=== PATIENT | male | born 1945 | race African-American/Black ===

== ENCOUNTER 2016-09-07 08:21 | Inpatient (IN) ==
[2016-09-07 09:27] LABS: Basophils % 0.4 % (0.0-0.8); Eosinophils % 0.2 % (0.00-10.9); Hemoglobin 12.9 GM/DL (14.0-18.0); Immature Granulocytes % 0.4 %; Immature Granulocytes Absolute 0.03 #; Lymphocytes # 1.7 10*3/uL (1.4-4.0); Lymphocytes % 19.5 % (21.2-54.2); Mean Corpuscular HGB Conc 32.3 GM/DL (32-36); Mean Corpuscular Hemoglobin 22 PG (27-34); Monocytes # 0.8 10*3/uL (0.11-0.8); Monocytes % 9.5 % (1.7-12.7); Neutrophils # 5.9 10*3/uL (1.4-7.4); Platelet Count 138 T/CUMM (130-400); Red Cell Distribution Width 16.1 % (9.3-17.3); White Blood Count 8.4 T/CUMM (4-12)
[2016-09-07 09:47] LABS: Albumin 2.9 G/DL (3.4-5.0); Bilirubin,Total 0.5 MG/DL (0.2-1.0); Calcium 8.6 MG/DL (8.5-10.1); Osmolality,Calculated 309.4 MOS/KG (273-304); Total Protein 7.5 G/DL (6.4-8.3)
--- NOTE | 2016-09-07 09:47 | XRay Report ---
XR chest 2V Date: 09/07/2016 9:18 AM History: Abnormal lab, edema Comparison: None Technique: PA and lateral chest Findings: The heart is borderline in size with uncoiling of the aorta. Diffuse parenchymal findings at the lung bases with small pleural effusions. The lungs are overexpanded. Unremarkable mediastinum with degenerative changes. Impression: COPD with minimal atelectasis/edema/infiltration at the lung bases with small pleural effusions. PROCEDURE INTERPRETED AT [facility] DEPARTMENT OF RADIOLOGY Final Report Signed by: Dr. Leslie Medina
--- NOTE | 2016-09-07 10:07 | Emergency Department Note ---
Cam Childress Meredith, am scribing for, and in the presence of, Cristian Heredia MD 09:17. Giovanna Childress Phillip K, MD, personally performed the services described in this documentation, ascribed by Luana Levy in my presence, and it is both accurate and complete . Arrival - Arrival Chief Complaint: Extremity Problem Stated Complaint: SENT BY DOCTOR ED Nursing Triage Note: PT SENT BY DR MILLS FOR EVALUATION OF ELEVATED PSA AND DECREASED RENAL FUNCTION. FAMILY REPORTS INCREASED EDEMA TO BLE. PT DENIES PAIN TO BLE. PT IS CONFUSED BUT FAMILY REPORTS THIS IS NORMAL MENTAL STATUS Mode of Arrival: Wheelchair Limitations: Altered Mental Status (confused at baseline) Source: Patient, Family, Old Records Reviewed, RN Notes Reviewed Time Seen by Provider: 09/07/16 09:12 - History of Present Illness HPI Narrative: Pt is a 71 y/o black male sent to the ED by Dr. Mills for further evaluation of elevated PSA and decreased renal function. Family reports that pt has had increased edema to bilaterl lower extremities and difficulty keeping food down for the past few days. Pt is confused at baseline. A majority of history was taken from family. He has a history of HTN, and dementia. Onset (ago): day(s) Allergies/Adverse Reactions: Allergies Allergy/AdvReac Type Severity Reaction Status Date / Time No Known Allergies Allergy Verified 09/07/16 08:41 Home Medications: Home Medications Medication Instructions Recorded Confirmed Type Aspirin EC Tab 81 mg PO DAILY 09/07/16 09/07/16 History Metoprolol Tartrate 50 mg PO BID 09/07/16 09/07/16 History amLODIPine [Norvasc] 10 mg PO DAILY 09/07/16 09/07/16 History Review of System - Review of System ROS unobtainable: due to mental status (confused at baseline) 12 point system: reviewed and no additional remarkable complaints except as stated - Review of System Cardiovascular: Present: as per HPI, edema Gastrointestinal: Present: as per HPI, other (difficulty keeping food down) Genitourinary male: Present: as per HPI, other (elevated PSA and decreased renal function) Medical,Surgical,& Family Hx - Medical History Cardio: History of: Hypertension Neurology: History of: Dementia - Surgical History Neurologic Surgeries: Patient denies: Neurologic Surgery - Family History Family History: Denies;: Additional Family History - Social History Smoking Status: Never smoker Frequency of Alcohol Use: None Type of Drug Use: None Exam Vital Signs: Vital Signs Temperature 97.7 F 09/07/16 08:50 Pulse Rate 77 09/07/16 08:50 Respiratory Rate 20 09/07/16 08:50 Blood Pressure 196/101 09/07/16 08:50 O2 Sat by Pulse Oximetry 97 09/07/16 08:50 - General General appearance: alert, in no apparent distress - Head Head exam: Present: atraumatic, normocephalic - Eye Eye exam: Present: normal appearance, PERRL, EOMI - ENT ENT exam: Present: mucous membranes moist, normal external ear exam - Neck Neck exam: Present: full ROM, trachea midline. Absent: tenderness, meningismus , lymphadenopathy, thyromegaly - Chest Chest inspection: Present: symmetric chest wall rise. Absent: tenderness, rash - Respiratory Respiratory exam: Present: normal lung sounds bilaterally. Absent: respiratory distress - Cardiovascular Cardiovascular exam: Present: regular rate, normal rhythm, normal heart sounds. Absent: murmur, rubs, gallop - Abdominal Exam Abdominal exam: Present: soft, normal bowel sounds. Absent: distention, tenderness - Extremities Exam Extremities exam: Present: full ROM, normal capillary refill, pedal edema (3+ to the left leg with increased warmth ), calf tenderness (left) - Back Exam Back exam: Present: full ROM. Absent: tenderness - Neurological Exam Neurological exam: Present: alert, CN II-XII intact. Absent: oriented X3 ( comfused at baseline) - Psychiatric Psychiatric exam: Present: normal affect, normal mood - Skin Skin exam: Present: warm, dry, intact Course Course Narrative: Patient discussed with the hospitalist. Results - Labs CBC & BMP: 09/07/16 08:58 09/07/16 08:58 Lab Results: I have reviewed the patients labs Labs: Laboratory Tests 09/07/16 08:58 WBC 8.4 RBC 5.80 H Hgb 12.9 L Hct 40.0 L MCV 69.0 L MCH 22 L Plt Count 138 Lymph % (Auto) 19.5 L Laboratory Tests 09/07/16 08:58 Sodium 133 L Potassium 6.0 H* Chloride 99 Carbon Dioxide 17 L Anion Gap 23.0 H BUN 132 H Creatinine 20.10 H Glucose 116 H Calculated Osmolality 309.4 H Albumin 2.9 L Globulin 4.6 H Albumin/Globulin Ratio 0.6 L - Diagnostic Findings Procedure: Chest x-ray: report reviewed by me, pending (COPD with minimal atelectasis/edema/infiltration at the lung bases with small pleural effusions. ) , Ultrasound: image reviewed by me (DVT left leg) Disposition Clinical Impression: Deep vein thrombosis of lower extremity, Acute renal failure, Hyperkalemia, diminished renal excretion Case discussed with: patient, patient's family, patient's physician Disposition: Still a Patient Condition: Guarded Additional Instructions: Admit to the hospitalist and consult nephrology.
--- NOTE | 2016-09-07 10:11 | Ultrasound Report ---
Exam: Left lower extremity venous Doppler/duplex ultrasound Comparison: None Clinical history: Left leg edema Technique: Duplex scan of the left lower extremity veins using th B- mode/grayscale imaging and Dopplers spectral analysis and color flow. Findings: There is abnormal compression and augmentation of the left common femoral, superficial femoral and popliteal veins. Occluding thrombus noted throughout the veins in the left leg including the greater saphenous vein. Normal flow in the right common femoral vein. Color flow study and spectral analysis performed. Impression: Evidence of extensive deep venous thrombosis within the left lower extremity. Findings were discussed by the technologist with Sarah Rosario RN at 10:00 AM on 09/07/2016. Critical test results Ultrasound images were captured and stored. PROCEDURE INTERPRETED AT [facility] DEPARTMENT OF RADIOLOGY Final Report Signed by: Dr. Leslie Medina
[2016-09-07 10:40] LABS: Hypochromasia 1+
[2016-09-07 10:41] LABS: Microcytosis 1+
[2016-09-07 10:42] LABS: Platelet Estimate Adequate
--- NOTE | 2016-09-07 11:08 | Hospitalist History & Physical ---
Assessment and Plan (1) Deep vein thrombosis of lower extremity Status: Acute Assessment and plan: Due to his impaired renal function, we will start anticoagulation per pharmacy recommendation. CBR and labs in AM. Current Visit: Yes (2) Acute renal failure Status: Acute Assessment and plan: Will re-check labs and obtain abdominal/renal ultrasound to r/o prostate obstruction. Will consider consult urology if findings are positive. Current Visit: Yes (3) Hyperkalemia, diminished renal excretion Status: Acute Assessment and plan: We will re-check labs and consult nephrology. Current Visit: Yes History of Present Illness Chief complaint: Left leg pain;inability to walk History of present illness: This is 71 year-old elderly -[place] male with an impressive medical history which includes hypertension that presented to the ED this morning with a chief complaint of left lower leg pain. Apparently, the pain started about two days ago. He described it as "dull" in quality; however it became severe on last night. He reports that the pain became "unbearable" this morning. After much encouragement from his and son whom are present at bedside, he decided to seek medical attention. His reports medical non-compliance; she states that "he hasn't seen a doctor in years" and "doesn't take any of his blood pressure medications". He was seen and evaluated in the ED. A bilateral venous doppler was performed which revealed an extensive deep vein thrombosis to the left lower extremity.Labs were obtained ; which revealed gross elevations in renal functions with a of BUN-132 and creatinine of 20. He was also hyperkalemic at 6.0. He does not appear to be uremic or experiencing altered mental status; his only complaint is left leg pain. He will be admitted to our services for ARF and Left leg DVT. In addition, the patient was seen in clinic by on yesterday in clinic. At that time labs were obtained, revealed an elevated creatinine 16; for which Dr. Alegria notified. We will consult Dr. Alegria to participate in the management of this patient. Home Medications Medication Instructions Recorded Confirmed Type Aspirin EC Tab 81 mg PO DAILY 09/07/16 09/07/16 History Metoprolol Tartrate 50 mg PO BID 09/07/16 09/07/16 History amLODIPine [Norvasc] 10 mg PO DAILY 09/07/16 09/07/16 History Allergies Allergy/AdvReac Type Severity Reaction Status Date / Time No Known Allergies Allergy Verified 09/07/16 08:41 Medical,Surgical,& Family Hx - Medical History Cardio: History of: Hypertension Neurology: History of: Dementia - Surgical History Neurologic Surgeries: Patient denies: Neurologic Surgery - Family History Family History: Denies;: Additional Family History - Social History Smoking Status: Never smoker Frequency of Alcohol Use: None Type of Drug Use: None - Constitutional Constitutional: Absent: fever(s), frequent falls, headache(s), increased appetite, weight gain, weight loss - EENT Eyes: Absent: blurry vision, diplopia, loss of vision Ears: Absent: decreased hearing, ear discharge, ear pain Nose, mouth and throat: Absent: dysphagia, epistaxis, headache(s), sore throat, vertigo - Cardiovascular Cardiovascular: Present: other (left lower leg edema and pain). Absent: chest pain with activity, dyspnea, radiating jaw, neck or arm pain, orthopnea - Respiratory Respiratory: Absent: cough, dyspnea, dyspnea on exertion, pain on inspiration - Gastrointestinal Gastrointestinal: Absent: abdominal pain, cramping, diarrhea, nausea, vomiting, jaundice - Genitourinary Genitourinary: Absent: difficulty urinating, flank pain, hematuria, nocturia, scrotal swelling, testicular mass - Musculoskeletal Musculoskeletal: Present: other (left lower leg pain) - Psychiatric Psychiatric: Absent: anxiety, auditory hallucinations, confusion, depression, difficulty concentrating, memory loss, suicidal ideation - Endocrine Endocrine: Absent: fatigue, polydipsia, polyphagia - Hematologic/Lymphatic Hematologic/Lymphatic: Absent: easy bleeding, easy bruising Exam - Constitutional Vitals: Period Temp Pulse Resp BP Sys/Ken Pulse Ox Last 24 Hr 70 20 192/102 97 General appearance: normal weight, no acute distress - Head Head exam: Present: normal inspection, normocephalic, atraumatic - Eye Eye exam: Present: EOMI. Absent: periorbital swelling, scleral icterus Pupils: Present: DANI, normal accommodation - ENT ENT exam: Present: normal exam - Neck Neck exam: Present: normal inspection. Absent: lymphadenopathy, meningismus, tenderness, thyromegaly - Respiratory Respiratory exam: Present: clear to auscultation bilaterally. Absent: rales, rhonchi, stridor, wheezes - Cardiovascular Cardiovascular exam: Present: regular rate and rhythm. Absent: carotid bruit, diastolic murmur, gallop, irregular rhythm, JVD, rubs, systolic murmur - GI/Abdominal GI/Abdominal exam: Present: normal bowel sounds, soft. Absent: firm, guarding, mass - Extremities Exam Extremities exam: Present: calf tenderness (left leg), edema - Back Exam Back exam: Present: normal inspection - Neurological Exam Neurological exam: Present: alert, oriented X3, normal gait, abnormal gait ( inability to bear weight on left leg), CN II-XII intact - Psychiatric Psychiatric exam: Present: normal affect - Skin Skin exam: Present: normal color, warm, dry Results - Labs CBC & BMP: 09/07/16 08:58 09/07/16 08:58 Lab Results: I have reviewed the past 24 hour labs
[2016-09-07] MEDS ORDERED: DEXTROSE 50% 25 GM/50 ML VIAL IV PRN (11:17)
[2016-09-07] MEDS ORDERED: GLUCAGON 1 MG VIAL IM PRN (11:17)
[2016-09-07] MEDS ORDERED: ACETAMINOPHEN 325 MG TABLET PO PRN (11:17)
--- NOTE | 2016-09-07 11:50 | Ultrasound Report ---
Exam: US renal Bilateral Date: 09/07/2016 10:49 AM Comparison: None Indication: Renal failure Technique:[Multiple real-time scans were obtained of the kidneys and urinary bladder. Color-flow scans obtained. Ultrasound images were captured and stored.] Findings: Right kidney measures 114 x 55 x 52 mm. Left kidney measures 123x 62 x 50 mm. Color flow documented in the kidneys. Minimal bilateral hydronephrosis with findings more pronounced on the right. Griffin catheter in the urinary bladder with limited evaluation of the bladder and pelvis. Urine noted in the urinary bladder. Impression: The right kidney is minimally smaller in size in the left with minimal bilateral hydronephrosis with findings more pronounced on the right. No obvious masses are identified. Griffin catheter in the urinary bladder with very limited evaluation of the bladder. PROCEDURE INTERPRETED AT [facility] DEPARTMENT OF RADIOLOGY Final Report Signed by: Dr. Leslie Medina
[2016-09-07] MEDS: SODIUM CHLORIDE 0.9% 1,000 ML IV SCH ×2 (13:32→22:01)
[2016-09-07] MEDS: INSULIN LISPRO 100 UNIT/ML SUBCUT SCH ×3 (13:41→21:56)
[2016-09-07 13:48] LABS: Osmolality,Calculated 307.4 MOS/KG (273-304)
[2016-09-07 13:50] LABS: Potassium 6.2 MMOL/L (3.5-5.1)
[2016-09-07 14:05] LABS: Apearance,Urine CLOUDY (Clear); Bilirubin,Urine Negative (Negative); Blood, Urine Moderate mg/dL (Negative); Glucose,Urine (UA) Negative (Negative); Ketones,Urine Negative (Negative); Nitrite,Urine Negative (Negative); Protein,Urine 100 MG/DL; RBC,Urine 33 /HPF (0-4); Urine Color Yellow (Yellow); Urine Specific Gravity 1.008 (1.001-1.035); Urine Urobilinogen < 2.0 EU/DL (0.2-1.0); WBC,Urine 508 /HPF (0-6)
--- NOTE | 2016-09-07 15:25 | Nephrology Consult Note ---
History of Present Illness Chief complaint: ARF History of present illness: Mr. Batista is a 71 year old male seen by his local physician in [place] yesterday for evaluation of fatigue. Lab results returned after the when home. His creatinine was noted to be 16. He was advised to come to the ER. On presentation, he reports some left lower extremity swelling and pain. He is mildly confused. His family states this is his baseline. He has had some nausea and vomiting. He denies shortness of breath. Home Medications Medication Instructions Recorded Confirmed Type Aspirin EC Tab 81 mg PO DAILY 09/07/16 09/07/16 History Metoprolol Tartrate 50 mg PO BID 09/07/16 09/07/16 History amLODIPine [Norvasc] 10 mg PO DAILY 09/07/16 09/07/16 History Allergies Allergy/AdvReac Type Severity Reaction Status Date / Time No Known Allergies Allergy Verified 09/07/16 08:41 Medical,Surgical,& Family Hx - Medical History Cardio: History of: Hypertension Neurology: History of: Dementia Endocrine: History of: Diabetes Mellitus (NIDDM) Renal: History of: Renal Failure - Surgical History Neurologic Surgeries: Patient denies: Neurologic Surgery - Family History Family History: Reports;: Family Cancer (father (prostate)), Family Diabetes ( mother, father), Family Heart Disease (mother, father), Family Hypertension ( MOTHER, FATHER) Denies;: Family Anesthesia Reaction, Family Hematology, Family Psychiatric Problems, Family Stroke, Additional Family History - Social History Smoking Status: Never smoker Frequency of Alcohol Use: None Type of Drug Use: None Review of Systems 12 point system: reviewed and no additional remarkable complaints except as stated Exam - Vital Signs Vital signs: Period Temp Pulse Resp BP Sys/Ken Pulse Ox Last 24 Hr 98.4 F 70-71 20-183 183-192/88-102 96-97 Exam: Gen.: Alert. Mildly confused ENT: Pupils equal round reactive to light. EOMs intact. Mucous membranes moist. Neck: Supple. No JVD or bruit. Cardiovascular: Regular rate and rhythm. No murmur rub or gallop Lungs: Clear Abdomen: Soft. Nontender. Positive bowel sounds. No organomegaly Extremities: No edema right. 1+ edema on the left Results - Labs CBC & BMP: 09/07/16 08:58 09/07/16 13:19 Assessment and Plan (1) Acute renal failure Status: Acute Assessment and plan: 71-year-old man admitted with: * ARF. Ultrasound shows bilateral hydronephrosis. He has greater than 1 L urine output soon after Griffin catheter placed. Renal function should improve * DVT, left leg. Eliquis has been started * Hypertension * Diabetes mellitus * Dementia Current Visit: Yes (2) Hypertension Status: Acute Current Visit: Yes (3) Dementia Status: Acute Current Visit: Yes (4) Deep vein thrombosis of lower extremity Status: Acute Current Visit: Yes (5) Hyperkalemia, diminished renal excretion Status: Acute Current Visit: Yes (6) Diabetes mellitus Status: Acute Current Visit: Yes
[2016-09-07] MEDS ORDERED: SODIUM POLYSTYRENE SULFATE 15 GM/60 ML BOTTLE PO ONE (17:00)
[2016-09-07] MEDS: METOPROLOL TARTRATE 50 MG TABLET PO SCH (21:55)
[2016-09-07] MEDS: APIXABAN 5 MG TABLET PO SCH (21:56)
[2016-09-08 06:03] LABS: Basophils % 0.1 % (0.0-0.8); Eosinophils % 0.1 % (0.00-10.9); Hematocrit 35.7 VOL% (42.0-52.0); Hemoglobin 11.6 GM/DL (14.0-18.0); Immature Granulocytes % 0.4 %; Immature Granulocytes Absolute 0.03 #; Lymphocytes # 1.4 10*3/uL (1.4-4.0); Lymphocytes % 19.2 % (21.2-54.2); Mean Corpuscular HGB Conc 32.5 GM/DL (32-36); Mean Corpuscular Hemoglobin 22 PG (27-34); Mean Corpuscular Volume 67.2 FL (87-102); Monocytes # 0.7 10*3/uL (0.11-0.8); Monocytes % 10.1 % (1.7-12.7); Neutrophils % 70.1 % (38.7-73.9); Platelet Count 123 T/CUMM (130-400); Red Blood Count 5.31 MC/CUMM (3.8-5.5); Red Cell Distribution Width 15.4 % (9.3-17.3); White Blood Count 7.2 T/CUMM (4-12)
[2016-09-08 06:30] LABS: Hypochromasia 1+; Ovalocytes Slight; Platelet Estimate Normal
[2016-09-08 06:31] LABS: Microcytosis 1+
[2016-09-08 06:33] LABS: Calcium 8.6 MG/DL (8.5-10.1); Osmolality,Calculated 294.3 MOS/KG (273-304); Potassium 4.5 MMOL/L (3.5-5.1)
[2016-09-08] MEDS: SODIUM CHLORIDE 0.9% 1,000 ML IV SCH ×3 (06:38→22:41)
[2016-09-08] MEDS: INSULIN LISPRO 100 UNIT/ML SUBCUT SCH ×4 (08:34→23:12)
--- NOTE | 2016-09-08 09:20 | Hospitalist Progress Note ---
Assessment and Plan (1) ARASELI (acute kidney injury) Status: Acute Assessment and plan: 1)ARASELI due to urinary obstruction, likely prostate- creatinine falling quickly after ambriz placed. good UOP. Continue ambriz, consult urology. 2)hyperkalemia- down after kayexalate and recovery of renal function. 3)DVT- on eliquis at 10mg bid for 10days, day 2, then 5mg bid. 4)dementia- exacerbated by uremia. His metabolic ecephalopathy should improve as renal function returns 5)DM- blood sugar looks ok- use SSI PRN. Current Visit: Yes (2) Deep vein thrombosis of lower extremity Status: Acute Current Visit: Yes (3) Hyperkalemia, diminished renal excretion Status: Acute Current Visit: Yes (4) Hypertension Status: Acute Current Visit: Yes (5) Dementia Status: Acute Current Visit: Yes (6) Diabetes mellitus Status: Acute Current Visit: Yes Hospitalist: Subjective Interval history: Mr Batista is doing well this morning, eating breakfast and watching TV. He denies pain and says his L leg is not bothering him. He has not had any problem with his ambriz. Exam - Constitutional Vitals: Period Temp Pulse Resp BP Sys/Kne Pulse Ox Last 24 Hr 97.8 F-99.9 F 70-87 18-183 124-192/57-102 95-99 General appearance: normal weight, no acute distress - Head Head exam: Present: normocephalic, atraumatic - Eye Eye exam: Present: EOMI. Absent: scleral icterus - Respiratory Respiratory exam: Present: clear to auscultation bilaterally - Cardiovascular Cardiovascular exam: Present: regular rate and rhythm - GI/Abdominal GI/Abdominal exam: Present: normal bowel sounds, soft. Absent: tenderness ( cannot palpate bladder today) - Extremities Exam Extremities exam: Present: edema (left calf still with some edema, but less than on admit) - Neurological Exam Neurological exam: Present: alert, oriented X3 (remains a bit confused, but more certain of himself than yesteday.) - Skin Skin exam: Present: warm, dry Results - Labs CBC & BMP: 09/08/16 05:24 09/08/16 05:24 Lab Results: I have reviewed the past 24 hour labs Quality Measures - VTE Contraindication to Mechanical VTE Prophylaxis: Current Diagnosis of DVT
[2016-09-08] MEDS: METOPROLOL TARTRATE 50 MG TABLET PO SCH ×2 (09:35→20:25)
[2016-09-08] MEDS: amLODIPine 10 MG TABLET PO SCH (09:35)
[2016-09-08] MEDS: PANTOPRAZOLE 40 MG TABLET PO SCH (09:35)
[2016-09-08] MEDS: APIXABAN 5 MG TABLET PO SCH ×2 (09:35→20:25)
--- NOTE | 2016-09-08 13:36 | Urology Consultation ---
History of Present Illness - Data of Consult Consult date: 09/08/16 - Consult Narrative History of present illness: Mr. Batista is a 71 year old male This 71-year-old black male was admitted to hospital with DVTs and was noted to have bladder distention with over thousand cc in his bladder. He was complaining of some urinary symptoms but he was voiding and did not think he was in urinary retention. He had an element marked elevated creatinine which is rapidly decreased with the Griffin catheter. He has no past history of any serious urological problems and he is a diabetic. I think that he probably has a neurogenic bladder with a markedly distended bladder and no urge to void. I am going to recommend we do a baseline PSA start him on medication for BPH and then give him a trial of voiding next week. He will probably need intermittent catheterization post discharge CC: Sherrell Perez MD - Home Medications and Allergies Home Medications: Home Medications Medication Instructions Recorded Confirmed Type Aspirin EC Tab 81 mg PO DAILY 09/07/16 09/07/16 History Metoprolol Tartrate 50 mg PO BID 09/07/16 09/07/16 History amLODIPine [Norvasc] 10 mg PO DAILY 09/07/16 09/07/16 History Allergies/Adverse Reactions: Allergies Allergy/AdvReac Type Severity Reaction Status Date / Time No Known Allergies Allergy Verified 09/07/16 08:41 Exam - Constitutional Vitals: Period Temp Pulse Resp BP Sys/Ken Pulse Ox Last 24 Hr 97.8 F-99.9 F 71-87 18-20 124-157/57-87 95-100 Results - Labs CBC & BMP: 09/08/16 05:24 09/08/16 05:24
[2016-09-08] MEDS: FINASTERIDE 5 MG TABLET PO SCH (14:17)
[2016-09-08] MEDS: TAMSULOSIN 0.4 MG CAPSULE PO SCH ×2 (14:17→20:25)
--- NOTE | 2016-09-08 15:37 | Nephrology Progress Note ---
Nephrology - PN: Subj Interval history: He is awake and alert. He denies shortness of breath or nausea Exam (PN)-Nephrology - Vital Signs Vital signs: Period Temp Pulse Resp BP Sys/Ken Pulse Ox Last 24 Hr 97.8 F-99.9 F 71-87 18-20 124-157/57-87 95-100 Exam: ENT: Normal Cardiovascular: Regular rate and rhythm. No murmur rub or gallop Lungs: Clear Extremities: No edema right. 1+ left leg edema - Lab 09/08/16 05:24 09/08/16 05:24 Most recent lab results Calcium 8.6 MG/DL (8.5-10.1) 09/08/16 05:24 Assessment and Plan (1) Acute renal failure Status: Deleted Assessment and plan: 71-year-old man admitted with: * ARF. This is DVT bladder outlet obstruction. Renal function improving quickly. Urology consulted * DVT, left leg. Eliquis has been started * Hypertension * Diabetes mellitus * Dementia Current Visit: Yes (2) Hypertension Status: Acute Current Visit: Yes (3) Dementia Status: Acute Current Visit: Yes (4) Deep vein thrombosis of lower extremity Status: Acute Current Visit: Yes (5) Hyperkalemia, diminished renal excretion Status: Acute Current Visit: Yes (6) Diabetes mellitus Status: Acute Current Visit: Yes
[2016-09-09 05:43] LABS: Calcium 8.6 MG/DL (8.5-10.1); Osmolality,Calculated 279.4 MOS/KG (273-304); Potassium 4.2 MMOL/L (3.5-5.1)
[2016-09-09] MEDS: SODIUM CHLORIDE 0.9% 1,000 ML IV SCH ×2 (06:06→23:55)
[2016-09-09] MEDS: PANTOPRAZOLE 40 MG TABLET PO SCH (08:43)
[2016-09-09] MEDS: APIXABAN 5 MG TABLET PO SCH ×2 (08:43→21:28)
[2016-09-09] MEDS: TAMSULOSIN 0.4 MG CAPSULE PO SCH ×2 (08:43→21:28)
[2016-09-09] MEDS: INSULIN LISPRO 100 UNIT/ML SUBCUT SCH ×4 (08:43→21:31)
[2016-09-09] MEDS: FINASTERIDE 5 MG TABLET PO SCH (08:43)
[2016-09-09] MEDS: METOPROLOL TARTRATE 50 MG TABLET PO SCH ×2 (08:43→21:28)
[2016-09-09] MEDS: amLODIPine 10 MG TABLET PO SCH (08:43)
--- NOTE | 2016-09-09 08:54 | Hospitalist Progress Note ---
Assessment and Plan - Time spent with patient Time spent with patient: Less than 30 minutes (1) ARASELI (acute kidney injury) Status: Acute Assessment and plan: Patient's acute kidney injury has essentially resolved from an initial creatinine of approximately 20 down to 1. Is postobstructive in nature and relieved with Griffin catheter placement. Urology has been consulted and is currently following. Current Visit: Yes (2) Deep vein thrombosis of lower extremity Status: Acute Assessment and plan: Symptomatically improving. Continue anticoagulation. Current Visit: Yes (3) Hypertension Status: Chronic Assessment and plan: Blood pressures controlled. Will continue his current regimen. Current Visit: Yes Qualifiers: Hypertension type: essential hypertension Qualified Code(s): I10 - Essential (primary) hypertension (4) Dementia Status: Chronic Current Visit: Yes (5) Diabetes mellitus Status: Chronic Assessment and plan: Continue to follow blood sugars with Accu-Cheks and sliding scale insulin. Current Visit: Yes Qualifiers: Diabetes mellitus type: type 2 Hospitalist: Subjective Interval history: Mr. Batista is doing well without complaints of chest pain, shortness breath, abdominal pain, nausea, vomiting, diarrhea, constipation. He is tolerating his diet without difficulty. Exam - Constitutional Vitals: Period Temp Pulse Resp BP Sys/Ken Pulse Ox Last 24 Hr 97.8 F-99.6 F 70-89 18-18 112-143/67-72 98-100 General appearance: no acute distress - Head Head exam: Present: normocephalic, atraumatic - Eye Eye exam: Present: EOMI Pupils: Present: DANI - ENT ENT exam: Present: normal oropharynx - Neck Neck exam: Present: normal inspection - Respiratory Respiratory exam: Present: clear to auscultation bilaterally - Cardiovascular Cardiovascular exam: Present: regular rate and rhythm - GI/Abdominal GI/Abdominal exam: Present: normal bowel sounds, soft. Absent: distended, tenderness, rebound - Extremities Exam Extremities exam: Present: calf tenderness (Tender swollen left lower extremity) - Back Exam Back exam: Present: normal inspection - Neurological Exam Neurological exam: Present: alert, oriented X3, CN II-XII intact. Absent: motor sensory deficit - Psychiatric Psychiatric exam: Present: normal affect, normal mood. Absent: agitated, anxious - Skin Skin exam: Present: warm, dry. Absent: rash Results - Labs CBC & BMP: 09/08/16 05:24 09/09/16 04:18 Lab Results: I have reviewed the past 24 hour labs Quality Measures - VTE Contraindication to Mechanical VTE Prophylaxis: Current Diagnosis of DVT
[2016-09-09] MEDS: cefTRIAXone 1,000 MG in SODIUM CHLORIDE 0.9% 100 ML IV SCH (17:10)
--- NOTE | 2016-09-09 19:41 | Nephrology Progress Note ---
Nephrology - PN: Subj Interval history: The patient is resting comfortably. Family at bedside. Renal function has continued to recover with serum creatinine of 1.1. No fevers or chills. Exam (PN)-Nephrology - Vital Signs Vital signs: Period Temp Pulse Resp BP Sys/Ken Pulse Ox Last 24 Hr 97.8 F-100.2 F 75-89 18-18 123-143/65-72 97-100 - General Appearance General appearance: well-developed, well-nourished EENT: ATNC Neck: supple Respiratory: clear Cardiology: no edema, regular rate, regular rhythm Gastrointestinal: normoactive bowel sounds, no tenderness Neurologic: alert and oriented x3, CN 3-12 intact Musculoskeletal: no clubbing Psychiatric: mood/affect appropriate - Lab 09/08/16 05:24 09/09/16 04:18 Most recent lab results Calcium 8.6 MG/DL (8.5-10.1) 09/09/16 04:18 Assessment and Plan (1) Deep vein thrombosis of lower extremity Status: Acute Current Visit: Yes (2) Hypertension Status: Chronic Current Visit: Yes Qualifiers: Hypertension type: essential hypertension Qualified Code(s): I10 - Essential (primary) hypertension (3) Diabetes mellitus Status: Chronic Current Visit: Yes Qualifiers: Diabetes mellitus type: type 2 (4) ARASELI (acute kidney injury) Status: Resolved Assessment and plan: This issue is continued to resolve. Serum creatinine is 1.1. Current Visit: Yes
[2016-09-10 05:54] LABS: Calcium 8.6 MG/DL (8.5-10.1); Osmolality,Calculated 272.7 MOS/KG (273-304); Potassium 4.1 MMOL/L (3.5-5.1)
--- NOTE | 2016-09-10 07:47 | Hospitalist Progress Note ---
Assessment and Plan - Time spent with patient Time spent with patient: Less than 30 minutes (1) ARASELI (acute kidney injury) Status: Resolved Assessment and plan: Patient's acute kidney injury has essentially resolved from an initial creatinine of approximately 20 down to 1. Is postobstructive in nature and relieved with Griffin catheter placement. Urology has been consulted and is currently following. 09/10/16: Renal function is essentially back to normal. Griffin catheter continues to be in place. Awaiting Dr. Elizondo's recommendations prior to discharge. Current Visit: Yes (2) Deep vein thrombosis of lower extremity Status: Acute Assessment and plan: Symptomatically improving. Continue anticoagulation. Current Visit: Yes (3) Hypertension Status: Chronic Assessment and plan: Blood pressures controlled. Will continue his current regimen. Current Visit: Yes Qualifiers: Hypertension type: essential hypertension Qualified Code(s): I10 - Essential (primary) hypertension (4) Dementia Status: Chronic Current Visit: Yes (5) Diabetes mellitus Status: Chronic Assessment and plan: Continue to follow blood sugars with Accu-Cheks and sliding scale insulin. Current Visit: Yes Qualifiers: Diabetes mellitus type: type 2 Hospitalist: Subjective Interval history: Patient has no new complaints today. No chest discomfort, shortness of breath, abdominal pain. Left leg swelling appears to be improving. He continues to have a Griffin catheter in place. Exam - Constitutional Vitals: Period Temp Pulse Resp BP Sys/Ken Pulse Ox Last 24 Hr 98.9 F-100.3 F 76-102 18-20 123-154/65-79 97-100 General appearance: no acute distress - Head Head exam: Present: normocephalic, atraumatic - Eye Eye exam: Present: EOMI Pupils: Present: DANI - ENT ENT exam: Present: normal exam - Neck Neck exam: Present: normal inspection - Respiratory Respiratory exam: Present: clear to auscultation bilaterally - Cardiovascular Cardiovascular exam: Present: regular rate and rhythm, tachycardia - GI/Abdominal GI/Abdominal exam: Present: normal bowel sounds, soft. Absent: mass, tenderness , rebound - Extremities Exam Extremities exam: Present: edema (1+ edema left lower extremity). Absent: calf tenderness - Back Exam Back exam: Present: normal inspection - Neurological Exam Neurological exam: Present: alert, oriented X3, CN II-XII intact. Absent: motor sensory deficit - Psychiatric Psychiatric exam: Present: normal affect, normal mood. Absent: agitated, anxious - Skin Skin exam: Present: warm, dry. Absent: rash Results - Labs CBC & BMP: 09/08/16 05:24 09/10/16 04:24 Lab Results: I have reviewed the past 24 hour labs Quality Measures - VTE Contraindication to Mechanical VTE Prophylaxis: Current Diagnosis of DVT
[2016-09-10] MEDS: SODIUM CHLORIDE 0.9% 1,000 ML IV SCH ×3 (08:30→20:49)
[2016-09-10] MEDS: METOPROLOL TARTRATE 50 MG TABLET PO SCH ×2 (08:59→20:50)
[2016-09-10] MEDS: amLODIPine 10 MG TABLET PO SCH (08:59)
[2016-09-10] MEDS: TAMSULOSIN 0.4 MG CAPSULE PO SCH ×2 (09:00→20:50)
[2016-09-10] MEDS: INSULIN LISPRO 100 UNIT/ML SUBCUT SCH ×4 (09:00→20:50)
[2016-09-10] MEDS: FINASTERIDE 5 MG TABLET PO SCH (09:00)
[2016-09-10] MEDS: PANTOPRAZOLE 40 MG TABLET PO SCH (09:00)
[2016-09-10] MEDS: APIXABAN 5 MG TABLET PO SCH ×2 (09:00→20:50)
--- NOTE | 2016-09-10 13:31 | Nephrology Progress Note ---
Nephrology - PN: Subj Interval history: The patient is resting comfortably. Renal function is normal. Creatinine is now 0.9. No new recommendations. Exam (PN)-Nephrology - Vital Signs Vital signs: Period Temp Pulse Resp BP Sys/Ken Pulse Ox Last 24 Hr 98.8 F-100.3 F 80-102 18-20 130-154/65-79 97-100 - General Appearance General appearance: well-developed, well-nourished EENT: ATNC Neck: supple Respiratory: clear Cardiology: regular rate, regular rhythm Gastrointestinal: normoactive bowel sounds, no tenderness Neurologic: alert and oriented x3 Musculoskeletal: no clubbing Psychiatric: mood/affect appropriate - Lab 09/08/16 05:24 09/10/16 04:24 Most recent lab results Calcium 8.6 MG/DL (8.5-10.1) 09/10/16 04:24 Assessment and Plan (1) Deep vein thrombosis of lower extremity Status: Acute Current Visit: Yes (2) Hypertension Status: Chronic Current Visit: Yes Qualifiers: Hypertension type: essential hypertension Qualified Code(s): I10 - Essential (primary) hypertension (3) Diabetes mellitus Status: Chronic Current Visit: Yes Qualifiers: Diabetes mellitus type: type 2 (4) ARASELI (acute kidney injury) Status: Resolved Assessment and plan: This issue is continued to resolve. Serum creatinine is .9 Current Visit: Yes
[2016-09-10] MEDS: cefTRIAXone 1,000 MG in SODIUM CHLORIDE 0.9% 100 ML IV SCH (17:27)
[2016-09-11] MEDS: SODIUM CHLORIDE 0.9% 1,000 ML IV SCH ×2 (01:13→09:25)
[2016-09-11 07:10] LABS: Calcium 8.3 MG/DL (8.5-10.1); Osmolality,Calculated 269.8 MOS/KG (273-304); Potassium 3.8 MMOL/L (3.5-5.1)
--- NOTE | 2016-09-11 08:08 | Discharge Summary ---
<Cara Wilcox - Last Filed: 09/11/16 09:12> Hospital Course - Hospital Course Hospital Course: Mr. Batista is a 71 year-old elderly -[place] male with a pmh of hypertension, diabetes and dementia. Pt. presented to the ED on 09/07 with a chief complaint of left lower leg pain. Pt's also reported increased urination at night and that the patient was more confused. He was seen and evaluated in the ED. A bilateral venous doppler was performed and revealed a deep vein thrombosis to the LLE. Pt. was found to be in acute renal failure with a BUN of 132 and creatinine of 20 and also hyperkalemic at 6.0. Ambriz cath placed and 1 Liter output recorded. Renal ultrasound obtained and showed mild hydronephrosis. The pt. was admitted to the hospitalist service for treatment. Eliquis started for DVT. (10 mg BID for 10 days then 5 mg BID) SSI insulin used to manage blood sugars. Kayexalate was started to help with hyperkalemia. Nephrology was consulted for renal failure. Urology was also consulted to see patient. At present, vital signs stable; renal issues have resolved. Ambriz cath to be removed. Pt. will be discharged. Urology recommends that patient be started on Flomax and Proscar and that self caths are performed. Pt. to follow up if there are any changes in status. Discharge Plan - Discharge Data Disposition: Home Health Service - Discharge Medications Continue Apixaban [Eliquis] 5 mg PO BID #74 tablet Cefuroxime Tab [Ceftin] 500 mg PO BID #6 tablet Omeprazole 40 mg PO DAILY #30 capsule Tamsulosin [Flomax] 0.4 mg PO BID #60 capsule amLODIPine [Norvasc] 10 mg PO DAILY #60 tablet Metoprolol Tartrate 50 mg PO BID Finasteride [Proscar] 5 mg PO DAILY #60 tablet Discontinued Aspirin EC Tab 81 mg PO DAILY - Follow Up or Referral Follow Up: Fidencio Elizondo MD [Physician] - [address] aiden [Other] - 1 Week Ike Kelly Jr., MD [Physician] - 2 Weeks - Forms/Instructions Instructions: Dementia (GEN), Deep Venous Thrombosis (DC), Chronic Hypertension (DC) Exam - Constitutional Vitals: Period Temp Pulse Resp BP Sys/Ken Pulse Ox Last 24 Hr 98.3 F-102.3 F 78-98 17-18 132-165/67-80 97-100 Discharge Results Labs on day of discharge: Labs from last 24 hours 09/11/16 05:02 Sodium 137 Potassium 3.8 Chloride 104 Carbon Dioxide 20 L Anion Gap 16.8 H BUN 5 L Creatinine 0.90 GFR Calculation 114 BUN/Creatinine Ratio 5.00 L Glucose 107 H Calculated Osmolality 269.8 L Calcium 8.3 L DS: Provider Date of admission: 09/07/16 10:06 Primary care physician: . No PCP Attending physician on admission: Sherrell Perez MD Consults: 09/07/16 13:01 Consult to Physician [CONS] Routine Comment: Consulting Provider: Ayo Alegria Consulting Provider Notified: Yes Person Notified: Mari Date Notified: 09/07/16 Time Notified: 14:00 09/07/16 13:11 Consult to Pharmacy [CONS] Routine Reason for Pharmacy Consult: Adjust Meds Renal Funct 09/08/16 09:25 Consult to Physician [CONS] Routine Comment: Consulting Provider: Fidencio Elizondo Consult to Specialist Group: Urology When should Consulting Provider be notified: Now Person Notified: Yessenia Date Notified: 09/08/16 Time Notified: 10:59 Discharging clinician: Cara Wilcox NP <Darby Marcelo - Last Filed: 09/11/16 12:30> Hospital Course - Hospital Course Hospital Course: Patient seen and examined. Hospital course reviewed and edited. Eliquis 10 mg po bid for 7 days not 10 then 5 mg po bid for total of 3 month. Renal failure resolved with hydration and ambriz. We will remove ambriz today and teach him to self cath three times a day. He was started on flomax and proscar for BPH and will need to follow up with Urology and Renal. His PSA was 6.1. His blood pressure is stable and his blood sugars were controlled without medication. He had a UTI which grew e. coli and will need 3 more days of ceftin. He needs to follow up with Dr Elizondo in one week, PMD in one week and Dr. Kelly in 2 weeks. - Time spent with patient Time with patient DS: Greater than 30 minutes (45 min) Discharge Plan - Discharge Data Condition at Discharge: Stable Discharge Diet: diabetic diet Activity: resume usual activities as tolerated - Forms/Instructions Additional Discharge Instructions: teach how to self cath every 8 hours. elevate left leg when sitting Exam - Constitutional General appearance: normal weight, no acute distress - Respiratory Respiratory exam: Present: clear to auscultation bilaterally. Absent: rales, wheezes - Cardiovascular Cardiovascular exam: Present: regular rate and rhythm - GI/Abdominal GI/Abdominal exam: Present: normal bowel sounds, soft. Absent: tenderness - Extremities Exam Extremities exam: Present: edema (left leg with dvt ) - Neurological Exam Neurological exam: Present: alert - Psychiatric Psychiatric exam: Present: normal affect, normal mood
--- NOTE | 2016-09-11 08:19 | Urology Progress Note ---
Urology - PN: Subj Interval history: I will DC the Griffin today and start intermittent catheterization. I will have the patient do self cath post discharge needs to go home on Flomax and Proscar Exam - Constitutional Vitals: Period Temp Pulse Resp BP Sys/Ken Pulse Ox Last 24 Hr 98.8 F-102.3 F 78-98 17-18 139-165/68-80 97-100 Results - Labs CBC & BMP: 09/08/16 05:24 09/11/16 05:02
[2016-09-11] MEDS: INSULIN LISPRO 100 UNIT/ML SUBCUT SCH ×2 (08:39→11:25)
[2016-09-11] MEDS: FINASTERIDE 5 MG TABLET PO SCH (08:42)
[2016-09-11] MEDS: PANTOPRAZOLE 40 MG TABLET PO SCH (08:42)
[2016-09-11] MEDS: amLODIPine 10 MG TABLET PO SCH (08:42)
[2016-09-11] MEDS: APIXABAN 5 MG TABLET PO SCH (08:42)
[2016-09-11] MEDS: METOPROLOL TARTRATE 50 MG TABLET PO SCH (08:42)
[2016-09-11] MEDS: TAMSULOSIN 0.4 MG CAPSULE PO SCH (08:43)
[2016-09-11 11:15] VITALS: BP 140/67
--- NOTE | 2016-09-11 12:42 | Urology Progress Note ---
Urology - PN: Subj Interval history: The patient's PSA is 6.1. I will need to repeat this and possibly do a prostate biopsy as an outpatient. I had a long talk with the patient and his about the importance of doing intermittent catheterization and the fact that if he does not do something to empty his bladder he will have progressive hydronephrosis and destroy his kidneys. The patient will was given a prescription for Flomax and Proscar and order catheters to be sent to his house. Exam - Constitutional Vitals: Period Temp Pulse Resp BP Sys/Ken Pulse Ox Last 24 Hr 98.3 F-102.3 F 78-98 17-18 132-165/67-80 97-100 Results - Labs CBC & BMP: 09/08/16 05:24 09/11/16 05:02 Specialty Discharge - Follow Up or Referrals Follow up with: dr aiden [Other] - 1 Week Ike Kelly Jr., MD [Physician] - 2 Weeks Fidencio Elizondo MD [Physician] - 1 Week
--- NOTE | 2016-09-11 21:27 | Nephrology Progress Note ---
Nephrology - PN: Subj Interval history: No new symptoms today Exam (PN)-Nephrology - Vital Signs Vital signs: Period Temp Pulse Resp BP Sys/Ken Pulse Ox Last 24 Hr 98.3 F-102.3 F 78-98 17-18 132-154/67-80 97-100 Exam: ENT: Normal Cardiovascular: Regular rate and rhythm. No murmur rub or gallop Lungs: Clear Extremities: No edema - Lab 09/08/16 05:24 09/11/16 05:02 Most recent lab results Calcium 8.3 MG/DL (8.5-10.1) L 09/11/16 05:02 Assessment and Plan (1) Acute renal failure Status: Deleted Assessment and plan: 71-year-old man admitted with: * ARF. Resolved * DVT, left leg. Eliquis has been started * Hypertension * Diabetes mellitus * Dementia (2) Hypertension Status: Chronic Qualifiers: Hypertension type: essential hypertension Qualified Code(s): I10 - Essential (primary) hypertension (3) Dementia Status: Chronic (4) Deep vein thrombosis of lower extremity Status: Acute (5) Hyperkalemia, diminished renal excretion Status: Acute (6) Diabetes mellitus Status: Chronic Qualifiers: Diabetes mellitus type: type 2 Specialty Discharge - Follow Up or Referrals Follow up with: dr aiden [Other] - 1 Week Ike Kelly Jr., MD [Physician] - 09/26/16 1:00 am Fidencio Elizondo MD [Physician] - 09/18/16 1:45 am
[2016-09-14] MEDS ORDERED: APIXABAN 5 MG TABLET PO SCH (21:00)
== END 2016-09-11 16:34 | disposition home health service (06) | DRG 682 ==
LOC: N.ED 08:21 → SUATTDRO 10:06 → N.EDINP 10:06 → N.5E 12:49
PROVIDERS: ADMIT Internal Medicine; ATTEND Internal Medicine